=== PATIENT | female | born 1955 | race Caucasian/White ===

== ENCOUNTER 2025-06-29 09:13 | Emergency (ER) | payer MEDICARE, SELFPAY ==
--- NOTE | ~2025-06-29 | XR_ITS ---
Examination: XR chest 2V Clinical History: chest pain Comparison: None Technique: PA and Lateral Findings: Cardiomediastinal silhouette normal size and configuration. Lungs clear. No acute bony abnormality. IMPRESSION: 1. No acute cardiopulmonary findings. Reviewed, dictated and finalized at location R. T FINISHER
[2025-06-29 09:13] VITALS: BP 152/76; PULSE 65; RESP 20; TEMP 36.6; O2SAT 99
--- NOTE | 2025-06-29 09:23 | ECG_ITS ---
Test Date: 2025-06-29 09:29:25 Measurements Intervals [place] Rate: 64 P: 9 NV: 162 QRS: -13 QRSD: 104 T: -16 QT: 435 QTc: 450 Interpretive Statements SINUS RHYTHM INFERIOR INFARCT, AGE INDETERMINATE BASELINE ARTIFACT- I, II, III, AVR, AVL, AVF, V3 ABNORMAL ECG No previous ECG available for comparison Electronically Signed On 06-29-2025 10:30:50 SHANK MAKER by Diego oRbins D.O.
--- NOTE | 2025-06-29 09:35 | ED_ITS ---
HPI - General Adult General Chief complaint: Anxiety Stated complaint: anxiety History of Present Illness HPI narrative: 70-year-old female present to the emergency department for evaluation for some chest pressure. Patient reports he has been having some intermittent chest pressure over the course of the last week. Patient also does report increased anxiety over the course of the last week as well. Patient denies any prior history of coronary artery disease. Patient denies any history of PE or DVT. Patient has no cardiac stents. Patient did have a stress test 2 years ago that was done at [place]. Patient also has a history of cardiac ablation for SVT in this was done at [place]. Related Data Home Medications ?Medication ?Instructions ?Recorded ?Confirmed ?Last Taken ?Type atorvastatin 20 mg tablet 20 mg PO DAILY 12/10/2303/31 Unknown History carvedilol 6.25 mg tablet 6.25 mg PO Q12H 12/10/23 Unknown History lisinopril 20 1 tablet PO DAILY 12/10/23 1 Unknown History mg-hydrochlorothiazide 25 mg tablet Allergies Allergy/AdvReac Type Severity Reaction Status Date / Time diphenhydramine Allergy Intermediate HEART Verified 04/20/25 07:10 RACES, GETS JITTERY Review of Systems 2 Review of Systems: All systems reviewed & are unremarkable except as noted in HPI and below PMFSH Past Medical History Medical History History of supraventricular tachycardia Hypertension Surgical History Surgical History History of surgery of uterus History of cardiac radiofrequency ablation Family History Family History Grandparent Cancer Father Heart disease Social History Social History (Updated 04/20/25 @ 07:45 by Rebecca Gallegos CMA) Smoking status: Former smoker Second hand tobacco smoke exposure: Yes Alcohol intake: current Alcohol use details: occasional Substance use: current Substance use type: does not use Lack of Transportation: No Lack of Food: Never True Current Housing: I Have Housing Concerned About Future Housing: No Difficulty Paying Gas/Electric Bills: No Difficulty Paying for Meds: No Currently Unemployed: No Education: High School Diploma/GED Difficulty w/ Childcare or Family Care: No Living arrangements: with family Occupation/Education: retired 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 HEAD: normocephalic, atraumatic. EYES: PERRLA/EOMI, conjunctivae clear. NOSE: Normal no drainage THROAT: Pharynx clear, no exudate. NECK: Supple. No adenopathy, no masses. RESPIRATORY: Airway patent, respirations nonlabored. Clear to auscultation bilaterally, no rales, rhonchi, wheezing. CARDIOVASCULAR: Regular rate and rhythm without murmurs rubs or gallops. ABDOMINAL: Soft, nontender, nondistended, normal bowel sounds MUSCULOSKELETAL: Moves all extremities. Strength/ROM intact, No edema, No calf tenderness. NEURO: Alert. Cranial nerves II through XII intact. Good gait. Good coordination SKIN: Warm, dry. Normal Color PSYCHIATRIC: Anxious affect Course Vital Signs Vital signs: Vital Signs Temperature 97.9 F 06/29/25 09:13 Pulse Rate 65 06/29/25 09:13 Respiratory Rate 20 06/29/25 09:13 Blood Pressure 152/76 H 06/29/25 09:13 Pulse Oximetry 99 06/29/25 09:13 Oxygen Delivery Room Air 06/29/25 09:13 Temperature 97.9 F 06/29/25 09:13 Pulse Rate 74 06/29/25 09:56 Respiratory Rate 26 H 06/29/25 09:56 Blood Pressure 142/73 H 06/29/25 09:56 Pulse Oximetry 98 06/29/25 09:56 Oxygen Delivery Room Air 06/29/25 09:13 [facility] Narrative Medical decision making narrative: 62-year-old female presents emergency department for evaluation for intermittent chest pressure. Patient was pain-free and pressure free at time of initial evaluation but patient was very anxious in appearance. Patient was treated with Ativan for underlying anxiety while additional cardiac rule out was performed. Patient was currently afebrile with no leukocytosis stable hemoglobin. Patient had negative serial troponins. INR is 1.0. No other acute abnormalities the patient's CMP chest x-ray was negative for acute cardiopulmonary abnormality. On re-evaluation patient does feel improved. Differential Diagnosis Differential Diagnosis: Anxiety, pneumonia, ACS, pneumothorax Lab Data [facility] Lab Attestation statement: I personally reviewed the patient's lab results. 06/29/25 09:32 06/29/25 09:32 Labs: Lab Results 06/29/25 06/29/25 Range/Units 09:32 12:30 WBC 8.2 (4.5-10.0) K/mm3 RBC 4.78 (4.2-5.4) M/mm3 Hgb 13.6 (12.0-15.0) g/dL Hct 41.0 (37.0-47.0) % MCV 85.8 (80-100) fl MCH 28.5 (26-34) pg MCHC 33.2 (32-36) g/dl RDW 13.0 (11.5-14.5) % Plt Count 266 (150-375) k/mm3 MPV 9.6 (7.4-10.4) fl Immature Gran % (Auto) 0.2 (0-0.5) % Neut % (Auto) 65.2 (45.5-73.1) % Lymph % (Auto) 25.8 (18.3-44.2) % Grant % (Auto) 6.6 (2.6-8.5) % Eos % (Auto) 1.5 (0-4.4) % Baso % (Auto) 0.7 (0.2-1.2) % Lymph # (Auto) 2.11 (0.9-3.2) K/mm3 Grant # (Auto) 0.5 (0.1-0.6) K/mm3 Eos # (Auto) 0.1 (0-0.3) K/mm3 Baso # (Auto) 0.1 (0.0-0.1) K/mm3 Abs Immat Gran (auto) 0.02 (0.00-0.031) K/mm3 Absolute Neuts (auto) 5.3 (1.3-6.7) K/mm3 Absolute Nucleated RBC 0.000 (0.0-0.012) K/mm3 Nucleated RBC % 0.0 (0.0-0.2) % PT 13.5 (11.1-14.7) Seconds INR 1.0 APTT 31.7 (22.3-36.8) Seconds Sodium 136 L (137-145) mmol/L Potassium 3.3 L (3.4-5.0) mmol/L Chloride 106 (98-107) mmol/L Carbon Dioxide 23 (22-30) mmol/L Anion Gap 7 (4-12) mmol/L BUN 15 (7-17) mg/dL Creatinine 0.75 (0.7-1.0) mg/dL Estim Creat Clear Calc 69 ml/min Estimated GFR > 60 (59 - ) Glucose 123 H (65-110) mg/dL Calcium 9.7 (8.4-10.2) mg/dL Total Bilirubin 0.8 (0.2-1.3) mg/dL AST 25 (14-36) U/L ALT 19 (6-35) U/L Alkaline Phosphatase 102 (38-126) U/L Troponin I < 0.012 < 0.012 (0.000-0.034) ng/mL Total Protein 7.1 (6.3-8.2) g/dL Albumin 4.2 (3.5-5.1) g/dL Lipase 138 (23-300) U/L Imaging Data Radiologist's impression: ITS Impressions Chest X-Ray 06/29/25 10:46 IMPRESSION: 1. No acute cardiopulmonary findings. Discharge Plan Discharge Clinical Impression: Chest pressure, Anxiety Patient Disposition: Home Condition: Stable Instructions: Antibiotic Form, Chest Pain (ED) Additional Instructions: Have close follow-up with your primary care physician for treatment of your anxiety and also to have additional outpatient cardiac testing. If you have any worsening symptoms then please call or return to the emergency department. Patient Language: Rwandan Prescriptions: No Action lisinopril-hydrochlorothiazide 20-25 mg tablet 1 tablet PO DAILY carvedilol 6.25 mg tablet 6.25 mg PO Q12H Rx Instructions: must administer with a meal/food atorvastatin 20 mg tablet 20 mg PO DAILY Follow-up/Referrals: Reed,Ezio Shepherd MD [Primary Care Provider] Quality HEART score for chest pain patients History: slightly suspicious ECG: normal Age: > 45 and < 65 years Risk factors: 1 or 2 risk factors Troponin: < or = to 1x normal limit Heart score: 2
[2025-06-29 09:42] LABS: Hematocrit 41.0 % (37.0-47.0); Hemoglobin 13.6 g/dL (12.0-15.0); Immature Granulocyte Percent A 0.2 % (0-0.5); Lymphocytes Absolute Auto 2.11 K/mm3 (0.9-3.2); Mean Corpuscular HGB Conc 33.2 g/dl (32-36); Mean Corpuscular Hemoglobin 28.5 pg (26-34); Mean Corpuscular Volume 85.8 fl (80-100); Nucleated Red Blood Cells Absolute Auto 0.000 K/mm3 (0.0-0.012); Nucleated Red Blood Cells Perc 0.0 % (0.0-0.2); Platelet Count Result 266 k/mm3 (150-375); Red Blood Count 4.78 M/mm3 (4.2-5.4); White Blood Count 8.2 K/mm3 (4.5-10.0)
[2025-06-29] MEDS: ASPIRIN 81 MG CHEWABLE TABLET 324 MG PO (09:43)
[2025-06-29] MEDS: NITROGLYCERIN SL 0.4 MG TABLET SUBLINGUAL (09:43)
[2025-06-29] MEDS: LORazepam (*CRX) 1 MG TABLET PO (09:44)
[2025-06-29] MEDS: PANTOPRAZOLE SODIUM IV 40 MG VIAL IV PUSH (09:44)
[2025-06-29 09:47] VITALS: BP 154/77; PULSE 66; RESP 28; O2SAT 98
[2025-06-29 09:51] VITALS: BP 127/76; RESP 25
[2025-06-29 09:53] LABS: Alanine Aminotransferase 19 U/L (6-35); Albumin Level 4.2 g/dL (3.5-5.1); Alkaline Phosphatase 102 U/L (38-126); Anion Gap 7 mmol/L (4-12); Aspartate Amino Transferase 25 U/L (14-36); Bilirubin,Total 0.8 mg/dL (0.2-1.3); Blood Urea Nitrogen 15 mg/dL (7-17); Calcium 9.7 mg/dL (8.4-10.2); Carbon Dioxide 23 mmol/L (22-30); Chloride 106 mmol/L (98-107); Estimated CRCL calculation 69 ml/min; Estimated Glomerular Filt Rate > 60; Glucose 123 mg/dL (65-110); Lipase 138 U/L (23-300); Potassium 3.3 mmol/L (3.4-5.0); Sodium 136 mmol/L (137-145); Total Protein 7.1 g/dL (6.3-8.2)
[2025-06-29 09:55] LABS: INR 1.0; Prothrombin Time 13.5 Seconds (11.1-14.7)
[2025-06-29 09:56] VITALS: BP 142/73; PULSE 74; RESP 26; O2SAT 98
[2025-06-29 09:57] LABS: Partial Thromboplastin Time 31.7 Seconds (22.3-36.8)
[2025-06-29 10:04] LABS: Troponin I < 0.012 ng/mL (0.000-0.034)
--- OUTSIDE RECORDS SUMMARY | 2025-06-29 10:29 | XMS_ITS | Clinical Summary ---
Author Organization [facility] Address [address] [place] [address] Care Team Providers Care Fish Bait Processing Supervisor Name Role Phone Ezio Mcbride MD Primary Care Provider [phone] Allergies Active Allergy Reactions Criticality Noted Date Comments Diphenhydramine Nausea And Vomiting,Anxiety,Other (See comments),Mental status changes,Nausea & Vomiting Medium 06/26/2016 Jitters Skin crawling Other reaction(s): Anxiety, Mental status changes, Other (See comments) Medications triamcinolone (KENALOG) 0.1 % cream Apply 1 application topically as needed for irritation 1 Active acetaminophen (TYLENOL) 325 mg tabletIndicatio ns:Fever,Pain Take 2 tablets (650 mg total) by mouth every 4 (four) hours as needed for pain 30 tablet 1 Active carvediloL (COREG) 6.25 mg tablet Take 1 tablet (6.25 mg total) by mouth 2 (two) times a day with meals 180 tablet 3 5 Active atorvastatin (LIPITOR) 20 mg tablet TAKE 1 TABLET(20 MG) BY MOUTH DAILY 90 tablet 3 5 Active lisinopril-hydr oCHLOROthiazide (ZESTORETIC) 20-25 mg per tabletIndicatio ns:hypertension TAKE 1 TABLET BY MOUTH DAILY 90 tablet 2 5 05/20/20 26 Active Active Problems Problem Noted Date Diagnosed Date Other hyperlipidemia 09/03/2022 HTN (hypertension) 05/30/2021 Assessment & Plan (01/11/2025 9:13 AM CDT): Blood pressure is slowly better. Continue weight loss. Continue to take medication as prescribed Assessment & Plan (11/03/2024 9:20 AM CDT): -BP elevated -Increase coreg 6.25 mg BID and monitor home BP. -Follow up with Dr. Mcbride for BP management Assessment & Plan (05/31/2021 12:53 PM REFERRAL MANAGER): Continue lisinopril 10 and hctz 12.5. . VICTORINA (obstructive sleep apnea) 05/30/2021 Assessment & Plan (05/31/2021 12:53 PM REFERRAL MANAGER): Intermittent CPAP compliance. Encouraged compliance Dizziness 03/01/2021 Assessment & Plan (03/01/2021 12:20 PM CDT): 48 hour holter CBC/CMP/TSH Decrease caffeine SVT (supraventricular tachycardia) (CMS/HCC) 06/2020 Assessment & Plan (01/11/2025 9:13 AM CDT): Stable and doing quite well. Assessment & Plan (11/03/2024 9:21 AM CDT): -Ms. Rodriguez has a long history of SVT that has been documented on ECGs and by ambulatory nuclear monitoring technician in the past -She has required 2 visits to the ER since she began experiencing symptomatic sustained arrhythmias with the most recent being in 08/2020 -Ms. Rodriguez [facility] and subsequently underwent EP study with induction and successful ablation of a parahisian atrial tachycardia (AT) in 05/2021 -She has not experienced sustained arrhythmias since her procedure -Increase coreg 6.25 mg BID for palpitations and HTN -Ms. Rodriguez remains at risk for other atrial arrhythmias (atrial flutter, atrial fibrillation) in future and will continue to follow-up with us on a scheduled basis -Encouraged lifestyle modifications including regular physical exercise, weight loss, limiting alcohol intake, BP control and treatment of sleep apnea to reduce arrhythmia recurrence Assessment & Plan (05/31/2021 12:52 PM REFERRAL MANAGER): Recurrent. Now s/p SVT ablation with HR 60-70s. Reevaluated by EP today and pt stable for discharge -Cont ASA 81 mg. Change metoprolol to coreg 6.25 mg BID -F/U as arranged by EP Assessment & Plan (12/28/2020 9:26 AM CDT): Will increase metoprolol to 100mg daily. May need EP evaluation Encounters Date Type Department Care Team Description 05/13/2025 Nurse Triage [facility] [address] [place] [id number] Rebecca Ghotra from Last 3 Months Immunizations Immunization Administration Dates Next Due Moderna SARS-CoV-2 Monovalen t Vaccination (12+ YRS) 05/18/2021,09/19/2020,08/09/2020 Surgical History Surgery Date Site/Laterality Comments SECTION COLONOSCOPY ENDOMETRIAL ABLATION 06/30/2015 - 06/29/2016 Medical History Medical History Date Comments Personal history of other di seases of the circulatory system History of hypertension - (A dded by TW Conv) Personal history of other sp ecified conditions History of ulceration - (Add ed by TW Conv) Hypertension Sleep apnea Hyperlipidemia Family History Medical History Relation Name Comments Coronary artery disease Father Heart disease Father Cancer Other Family history of malignant neoplasm - Relation: Grandparent (Added by TW Conv) Relation Name Status Comments Father Other Social History Tobacco Use Types Packs/Day Years Used Date Smoking Tobacco: Former Cigarettes 0.3 20 1 980 - 2000 Smokeless Tobacco: Never Tobacco Cessation:Counseling Given: Not Answered AUDIT-C Answer Date Recorded Q1: How often do you have a drink containing alc ohol? 2-4 times a month 05/30/2021 Q2: How many drinks containi ng alcohol do you have on a typical day when you are drinking? 5 or 6 05/30/2021 Q3: How often do you have si x or more drinks on one occasion? Monthly 05/30/2021 PHQ-2 Answer Date Recorded PHQ-2 Total Score (If total score is 3 or more points, staff should administer the PHQ-9) 0 05/13/2023 Comments No Sex and Gender Information Value Date Recorded Sex Assigned at Not on file Legal Sex Female 11:22 AM REFERRAL MANAGER Gender Identity Not on file Sexual Orientation Not on file Last Filed Vital Signs Vital Sign Reading Time Taken Comments Blood Pressure 170/92 01/11/2025 8:39 AM CDT Pulse 84 01/11/2025 8:39 AM CDT Temperature 36.7 C (98.1 F) 05/31/2021 5:45 AM REFERRAL MANAGER Respiratory Rate 18 05/31/2021 5:45 AM REFERRAL MANAGER Oxygen Saturation 99% 11/03/2024 8:16 AM CDT Inhaled Oxygen Concentration - - Weight 100.2 kg (221 lb) 01/11/2025 8:39 AM CDT Height 154.9 cm (5' 1) 01/11/2025 8:39 AM CDT Body Mass Index 41.76 01/11/2025 8:39 AM CDT Plan of Treatment Health Maintenance Due Date Last Done Comments Hepatitis C Screening 1955 Osteoporosis Screening-Bone Density Scan 1955 DTaP/Tdap/Td Vaccine (1 - Tdap) 1968 Hepatitis B Screening 1975 Pneumococcal vaccine 65+ (1 of 1 - PCV) 2007 Zoster Vaccine (1 of 2) 2007 Well Visit 65+ 2022 Fall Risk Assessment 05/31/2022 05/31/2021 Depression Screening 05/13/2024 05/13/2023 Covid-19 Vaccine (4 - 2024-2 6 season) 2025 05/18/2021, 09/19/2020, 08/09/2020 Influenza Vaccine (#1) 2025 Breast Cancer Screening-Mammogram 09/23/2025 09/23/2024, 09/25/2022, 09/25/2022, Additional history exists Colon Cancer Screening-Colonoscopy 09/21/2028 09/21/2018 Colon Cancer Screening-CT Colonography Discontinued 09/21/2018 Colon Cancer Screening-DNA Stool Discontinued 09/22/19 19 Colon Cancer Screening-FIT Discontinued 09/21/2018 Colon Cancer Screening-Sigmoidoscopy Discontinued 09/21/2018 Medical Devices Implanted Type Area Clockmaker Apprentice Device Identifier Shelf Expiration Date Model / Serial / Lot [employer] [id number] System 6-12fr Mvp Venous Closure Vascade - [id number] Implanted:Qty: 1 on 05/30/2021 by Arik Oshea MD at [facility] Right: Femoral [employer] 03/08/2023 [id number]-[id number] [id number] / / [id number] [employer] [id number] System 6-12fr Mvp Venous Closure Vascade - [id number] Implanted:Qty: 1 on 05/30/2021 by Arik Oshea MD at [facility] Right: Femoral [employer] 03/08/2023 800-612C-1 [id number] / / [id number] [employer] [id number] Device Closure Vascade Od5 Fr Femoral Artery - [id number] Implanted:Qty: 1 on 05/30/2021 by Arik Oshea MD at [facility] Left: Femoral [employer] 03/01/2023 [id number] / / [id number] [employer] [id number] System 6-12fr Mvp Venous Closure Vascade - [id number] Implanted:Qty: 1 on 05/30/2021 by Arik Oshea MD at [facility] Left: Femoral [employer] 03/08/2023 800-612C-[id number] [id number] / / [id number] Procedures Procedure Name Priority Date/Time Associated Diagnosis Comments SCREENING MAMMOGRAM 2D BILATERAL Schedule Routine, Read Routine (OP Routine) 08/24/2020 COLONOSCOPY Routine 09/21/2018 from Last 3 Months or Most Recently Relevant to Health Maintenance Results * Screening Mammogram 2D Bilateral (08/24/2020) Anatomical Region Laterality Modality Breast Bilateral Mammography Narrative 08/24/2020 Pt has mammogram with physician internist 2020 us Historical Provider MD [facility] MAMMO PROCEDURES Maeve l Result * Colonoscopy (09/21/2018) Anatomical Region Laterality Modality Other Narrative 09/21/2018 Pt had [address] child repeat every 5 years us Historical Provider ENDOSCOPY PROCEDURES Maeve l Result from Last 3 Months or Most Recently Relevant to Health Maintenance Insurance [facility] CHOICE PLUS CHOICE PR[place] ANTHE[place] ACCESS BLUE ACCESS [facility] AET[employer] MEDICARE MEDICARE MEDICARE Advance Directives For more information, please contact: [phone] * Full Code (Latest Code Status on File) Date Activated Date Inactivated Comments 05/30/2021 7:24 PM 05/31/2021 4:20 PM Care Teams Fish Bait Processing Supervisor Relationship Specialty Start Date End Date Ezio Mcbride MD [facility] - General 09/23/17
--- OUTSIDE RECORDS SUMMARY | 2025-06-29 10:29 | XMS_ITS | Encounter Summary ---
Author Organization [facility] Address [address] [place] [address] Care Team Providers Care Satellite Instruction Facilitator Name Role Phone Ezio Mcbride MD Primary Care Provider [phone] Encounter Details Date Type Department Care Team (Late st Contact Info) Description 05/13/2025 Nurse Triage [facility] [address] [facility] [address] [place] [address] Rebecca Ghotra Social History Tobacco Use Types Packs/Day Years Used Date Smoking Tobacco: Former Cigarettes 0.3 20 1 980 - 2000 Smokeless Tobacco: Never AUDIT-C Answer Date Recorded Q1: How often [...] on file Legal Sex Female 11:22 AM FEDERAL JUDGE Gender Identity Not on file Sexual Orientation Not on file documented as of this encounter Miscellaneous Notes * Telephone Encounter - Rebecca Ghotra - 05/13/2025 8:10 AM CST ERRONEOUS RAL JUDGE RAL JUDGE documented in this encounter Plan of Treatment Not on file documented as of this encounter Visit Diagnoses Not on filedocumented in this encounter Care Teams Satellite Instruction Facilitator Relationship Specialty Start Date End Date Ezio Mcbride MD PCP - General 09/23/17 documented as of this encounter
--- NOTE | 2025-06-29 12:23 | ECG_ITS ---
Test Date: 2025-06-29 12:41:17 Measurements Intervals [place] Rate: 65 P: 25 DC: 158 QRS: -11 QRSD: 95 T: -12 QT: 432 QTc: 450 Interpretive Statements SINUS RHYTHM INFERIOR INFARCT, AGE INDETERMINATE BORDERLINE ST-T WAVE ABNORMALITY- ANTEROLATERAL LEADS BASELINE ARTIFACT- I, II, AVL ABNORMAL ECG Compared to ECG 06/29/2025 09:29:25 NO SIGNIFICANT CHANGE Electronically Signed On 06-29-2025 21:33:30 OUTPATIENT PHLEBOTOMIST by Diego Robins D.O.
[2025-06-29 13:03] LABS: Troponin I < 0.012 ng/mL (0.000-0.034)
== END 2025-06-29 13:57 | disposition home or self-care (01) ==
PROVIDERS: Emergency Provider Emergency Medicine; PCP Internal Medicine
DX: R07.89 Other chest pain (principal); F41.9 Anxiety disorder, unspecified; I10 Essential (primary) hypertension; Z87.891 Personal history of nicotine dependence
CPT/HCPCS: 36415; 71046; 80053; 83690; 84484; 85025; 85610; 85730; 93005; 96374; 99284; A9270; J2470